=== PATIENT | male | born 1975 | race Caucasian/White ===

== ENCOUNTER → 2017-08-13 16:07 | Outpatient (CLI) | payer BC, SELFPAY ==
--- NOTE | 2017-08-13 16:20 | EKG12_ITS ---
Test Reason : PRE OP Blood Pressure : / mmHG Vent. Rate : 072 BPM Atrial Rate : 072 BPM P-R Int : 140 ms QRS Dur : 076 ms QT Int : 372 ms P-R-T Axes : 051 021 022 degrees QTc Int : 407 ms Normal sinus rhythm with sinus arrhythmia Normal ECG Confirmed by FELIPE MEZA, RADHA ([id number]), content editor CHOLO DAVID ([id number]) on 08/15/2017 2:08:07 PM Referred By: Poncho Rod Confirmed By:RADHA WANG MD
--- NOTE | 2017-08-13 16:21 | RAD_ITS ---
STUDY: X-RAY CHEST REASON FOR EXAM: Male, 41 years old. Preoperative exam TECHNIQUE: Frontal and lateral views of the chest COMPARISON: None. FINDINGS: The lungs are clear. There are no pleural effusions. There is no pneumothorax. The heart is normal in size. The visualized osseous structures are within normal limits. RAD/Chest PA and Lateral IMPRESSION: Clear lungs Electronically Signed: Yamil Mendez, at 17:17 EDT Tel , Service support ,
[2017-08-13 17:11] LABS: Hematocrit 43.7 % (40-54); Hemoglobin 15.2 g/dl (13.0-16.5); Mean Corp Hgb Conc 34.8 g/gl (32-36); Mean Corpuscular Hgb 30.3 pg (27.0-32.0); Mean Corpuscular Volume 87.2 fL (80-94); Mean Platelet Vol. 10.6 fl (6.2-12.0); Platelet Count 270 K/mm3 (150-450); RBC Distribution Width CV 13.5 % (11.6-14.6); RBC Distribution Width SD 43.2 fl (35.1-43.9); Red Blood Count 5.01 M/mm3 (4.6-6.2); White Blood Count 7.5 K/mm3 (4.4-11.0)
[2017-08-13 17:12] LABS: Scan Indicated on CBC? Y/N NO
[2017-08-13 17:38] LABS: Anion Gap 7 (5-15); BUN 19 mg/dL (7-18); BUN/Creat Ratio 14.3 RATIO (10-20); Calcium,Total 8.7 mg/dL (8.5-10.1); Chloride 109 mmol/L (98-107); Creatinine, Serum 1.33 mg/dL (0.70-1.30); EST Glomerular Filtration Rate 63 mL/min (>60); Est Glom Filt Rate - Afr Amer 76 mL/min (>60); Glucose 80 mg/dL (74-106); Potassium 3.9 mmol/L (3.5-5.1); Sodium Level 144 mmol/L (136-145)
== END ==
PROVIDERS: Visit Provider Orthopaedic Surgery
DX: Z01.818 Encounter for other preprocedural examination (principal); Z01.810 Encounter for preprocedural cardiovascular examination; F17.200 Nicotine dependence, unspecified, uncomplicated
CPT/HCPCS: 36415; 71046; 80048; 85027; 93005

== ENCOUNTER 2018-12-14 15:25 | Emergency (ER) | payer BC, SELFPAY ==
[2018-12-14 15:26] VITALS: BP 152/96; PULSE 89; RESP 16; TEMP 37; O2SAT 98; BMI 35.8
--- NOTE | 2018-12-14 15:54 | ED.DCSUM_ITS ---
- ER Visit Summary Date of Service: 12/14/18 Chief Complaint: [Rash] History of Present Illness: The patient is a 43 M [present to the emergency department with a rash that he has had for about 2-1/2 weeks. Patient states that he was pulling bushes out from around his house and afterwards noted the rash. Patient believes is poison oak. Patient has been using calamine lotion but continues to have weeping and drainage from the wounds. He denies any fevers. Denies any new soaps or detergents otherwise. The rash seems to only involve his hands and wrists.] Physical Examination: [HEENT-PERRLA, EOMI. Cranial nerves II through XII grossly intact. TMs clear. Mucous membranes moist. No adenopathy. Cardiovascular-regular rate and rhythm without murmur or ectopy Lungs-clear to auscultation, chest wall stable without crepitus or subcu emphysema Abdomen-normoactive bowel sounds, soft, nontender, no rebound or rigidity, no peritoneal signs. Skin exam-patient does have weeping and excoriated lesions involving the dorsum of the hands and wrists. Patient does have some inflammatory changes around the lesions. Rash is typical of a Rhous dermatitis Extremities-intact ?4, normal range of motion, normal pulses, atraumatic] Test Results: [None indicated] Emergency Department Course and Treatment: [Patient was given prednisone 40 mg p.o.] Treatment Plan: [Patient will be given a prescription for prednisone. Patient will be given referral to power tool repairer for follow-up.] Disposition: [Discharged home stable condition] Impression: [Rhous dermatitis] This note was generated with [employer] dictation software. It may contain incorrect words, spelling, and punctuation that were not noted in review of the chart prior to signing ED Disposition - Plan for ED Patient: Referrals: Care Physician,No Primary [Primary Care Provider] -
[2018-12-14] MEDS: predniSONE 20 MG Tablet 40 MG PO (15:56)
--- NOTE | 2018-12-14 15:57 | ED.DEP ---
ED Disposition - Plan for ED Patient: Instructions: Poison [place] Dermatitis Prescriptions: Prednisone [Deltasone] 20 mg PO BID #14 tab Prescription Printed Referrals: Care Physician,No Primary [Primary Care Provider] - Yadiel Barrow MD [STAFF PHYSICIAN] - 5-7 Days
== END 2018-12-14 16:03 | disposition home or self-care (01) ==
LOC: ED 15:58
PROVIDERS: Emergency Provider Emergency Medicine
DX: L23.7 Allergic contact dermatitis due to plants, except food (principal)
CPT/HCPCS: 99283

== ENCOUNTER 2020-02-22 17:16 | Emergency (ER) | payer BC, SELFPAY ==
[2020-02-22 17:17] VITALS: BP 148/105; PULSE 74; RESP 15; TEMP 35.8; O2SAT 100; BMI 38.5
--- NOTE | 2020-02-22 17:38 | CM.ED ---
Social Work Patient with no PCP. Patient provided with list of PCP's in area. Patient with insurance and voices no concerns on returning to home/community if cleared by medical team in ED. Ishaan CRANDALL, JOSE
--- NOTE | 2020-02-22 17:39 | ED.VIS.GEN ---
History of Present Illness Chief Complaint: Complaint Informant: Patient Onset: Days Context: Gradual Onset Current Severity: Mild Maximum Severity: Mild Narrative: Patient presents with dysuria and penile discharge. Symptoms been ongoing for couple of days. He denies any known partners with infection. He states he is monogamous with his . He denies history of UTIs or STDs. He denies any lesions or sores. Past Medical History - Allergies and Home Meds Allergies/Adverse Reactions: Allergies No Known Allergies Allergy (Verified 02/22/20 17:16) Primary Care Physician: Care Physician,No Primary [Primary Care Provider] - Past Medical History: None Lives: Spouse/ Significant Other Smoking Status: Current some day smoker Review of Systems General: Denies: Chills, Fever Eyes: Denies: Visual changes - bilaterally ENT: Denies: Bilateral ear pain Cardiovascular: Denies: Chest pain Respiratory: Denies: Dyspnea, Cough Gastrointestinal: Denies: Abdominal pain, Vomiting Genitourinary: Reports: Dysuria Musculoskeletal: Denies: Extremity Pain Skin: Denies: Rash Neurological: Denies: Headache Hematologic: Denies: Easy bruising, Easy bleeding Allergy: Denies: Uticaria Physical Exam Vital Signs/Narrative: Vital Signs Temp Pulse Resp BP Pulse Ox 02/22/20 17:17 96.5 F L 74 15 148/105 H 100 Inital Vital Signs reviewed: Yes General: Well nourished, Well developed Head: Normocephalic ENT: Moist mucous membranes Neck: Supple Cardiovascular: Regular rate, Regular rhythm Respiratory: No distress, CTA bilaterally Abdomen: Soft, Nontender : - - Patient declined examination stating that there were no lesions to evaluate. Back: Negative for: CVA tenderness Extremities: Nontender Skin: Normal color Neurological: Alert, Oriented x3 Psychological: Normal affect Diagnostic/Tx/Re-eval Laboratory Results 02/22/20 17:50 Urine Color Yellow Urine Clarity Sl. Cloudy Urine pH 7.0 Ur Specific [place] 1.010 Urine Protein Negative Urine Glucose (UA) Normal Urine Ketones Negative Urine Occult Blood Negative Urine Nitrite Negative Urine Bilirubin Negative Urine Urobilinogen Normal Ur Leukocyte Esterase 500 H Urine RBC 0-5 SEEN Urine WBC 25-50 SEEN Ur Squamous Epith Cells 0 SEEN Urine Bacteria 1+ Urine Mucus 0 SEEN - Medical Decision Making Urinalysis does reveal evidence of infection. He will be treated with a 3-day course of Cipro. Gonorrhea and Chlamydia tests were sent but would not be available for couple of hours. I advised him we will call him with those results and get him antibiotic coverage for that if needed. ED Disposition - Plan for ED Patient: Disposition: Home or Assisted Living Diagnosis: Cystitis Instructions: ED CYSTITIS Male Adult Prescriptions: Ciprofloxacin [Cipro] 500 mg PO BID #6 tab Transmission Status: Pending to [facility]30 Additional Instructions: PCP referral pamphlet provided.
[2020-02-22 18:02] LABS: Mucous, Urine 0 SEEN /hpf (<or=2+); Squamous Epithelial Cells - UA 0 SEEN /hpf (0-5)
[2020-02-22 18:04] LABS: Color, Urine Yellow (Yellow); Glucose, Dipstick Normal (Normal); Ketone-Dipstick Negative (Negative); Leukocyte Esterase-Dipstick 500 /ul (Negative); Nitrite-Dipstick Negative (Negative); Occult Blood-Urine Negative /ul (Negative); Protein-Dipstick Negative (Negative); Urine Bilirubin Dipstick Negative (Negative); Urine Clarity Sl. Cloudy (Clear); Urine Urobilinogen Normal (Normal)
[2020-02-22 18:11] LABS: Bacteria 1+ /hpf (None Seen); Red Blood Cells-Urine 0-5 SEEN /hpf (0-5); White Blood Cells 25-50 SEEN /hpf (0-5)
[2020-02-22] MEDS: Ciprofloxacin 500 MG Tablet PO (18:58)
[2020-02-22 19:41] LABS: Chlamydia Trachomatis by PCR Negative (Negative); Neisserai gonorrhoeae by PCR Negative (Negative); Probe Check PASS; Sample Adequacy Control PASS; Specimen Processing Control PASS
== END 2020-02-22 19:19 | disposition home or self-care (01) ==
PROVIDERS: Emergency Provider Emergency Medicine
DX: N30.90 Cystitis, unspecified without hematuria (principal); F17.200 Nicotine dependence, unspecified, uncomplicated
CPT/HCPCS: 81001; 87086; 87491; 87591; 99282

== ENCOUNTER → 2020-05-01 15:49 | Outpatient (CLI) | payer BC, SELFPAY ==
[2020-05-04 07:07] LABS: Chlamydia By Nucleic Acid AMP Negative (Negative)
[2020-05-04 13:49] LABS: Gonococcus By Nucleic Acid AMP Negative (Negative)
== END ==
LOC: MFPLAB 15:50 → LABSPEC 15:52
PROVIDERS: PCP Family Medicine; Referring Provider Family Medicine; Visit Provider Family Medicine
DX: R36.9 Urethral discharge, unspecified (principal)
CPT/HCPCS: 87086; 87491; 87591

== ENCOUNTER → 2020-05-18 15:41 | Outpatient (CLI) | payer BC, SELFPAY ==
[2020-05-18 18:20] LABS: ALB/GLOB Ratio 1.1 RATIO (0.9-2.4); AST(SGOT) 53 U/L (15-37); Alanine Aminotransfer ALT/SGPT 61 U/L (16-61); Albumin, Serum 4.2 g/dL (3.2-5.0); Alkaline Phosphatase 98 U/L (45-117); Anion Gap 7 (5-15); BUN 16 mg/dL (7-18); BUN/Creat Ratio 13.1 RATIO (10-20); Calcium,Total 9.4 mg/dL (8.5-10.1); Chloride 107 mmol/L (98-107); Cholesterol 202 mg/dL (200); Creatinine, Serum 1.22 mg/dL (0.70-1.30); EST Glomerular Filtration Rate 69 mL/min (>60); Est Glom Filt Rate - Afr Amer 83 mL/min (>60); Globulin 3.8 g/dL (2.2-4.2); Glucose 89 mg/dL (74-106); High Density Lipoprotein 42 mg/dL; Potassium 3.8 mmol/L (3.5-5.1); Sodium Level 142 mmol/L (136-145); Triglycerides 107 mg/dL; Very Low Density Lipoprotein 21 mg/dL (5-40)
== END ==
LOC: MFPLAB 15:42
PROVIDERS: PCP Family Medicine; Referring Provider Family Medicine; Visit Provider Family Medicine
DX: E66.9 Obesity, unspecified (principal)
CPT/HCPCS: 36415; 80053; 80061

== ENCOUNTER → 2020-05-23 14:24 | Outpatient (CLI) | payer BC, SELFPAY | LOC: LABSPEC 14:25 | PROVIDERS: PCP Family Medicine; Referring Provider Family Medicine; Visit Provider Family Medicine | DX: R36.9 Urethral discharge, unspecified (principal) | CPT/HCPCS: 87086; 87088 ==

== ENCOUNTER → 2020-10-31 16:24 | Outpatient (CLI) | payer BC, SELFPAY ==
[2020-10-31 16:26] LABS: Bacteria 0 SEEN /hpf (None Seen); Mucous, Urine 0 SEEN /hpf (<or=2+); Red Blood Cells-Urine 0 SEEN /hpf (0-5)
[2020-10-31 18:16] LABS: Color, Urine Yellow (Yellow); Glucose, Dipstick Normal (Normal); Ketone-Dipstick Negative (Negative); Nitrite-Dipstick Negative (Negative); Occult Blood-Urine Negative /ul (Negative); Protein-Dipstick Negative (Negative); Specific Gravity, Urine 1.015 (1.002-1.030); Urine Bilirubin Dipstick Negative (Negative); Urine Urobilinogen Normal (Normal)
[2020-10-31 18:29] LABS: Leukocyte Esterase-Dipstick 25 /ul (Negative); Urine Clarity Sl. Cloudy (Clear)
[2020-10-31 18:34] LABS: Squamous Epithelial Cells - UA 0-5 SEEN /hpf (0-5); White Blood Cells 5-10 SEEN /hpf (0-5)
[2020-10-31 19:17] LABS: Probe Check PASS; Sample Adequacy Control PASS; Specimen Processing Control PASS
[2020-10-31 19:49] LABS: Chlamydia Trachomatis by PCR Negative (Negative); Neisserai gonorrhoeae by PCR Negative (Negative); Probe Check PASS; Sample Adequacy Control PASS; Specimen Processing Control PASS; Trichomonas Vag DNA by PCR POSITIVE (Negative)
== END ==
LOC: LABSPEC 16:25
PROVIDERS: PCP Family Medicine; Visit Provider Family Medicine
DX: R36.9 Urethral discharge, unspecified (principal)
CPT/HCPCS: 81001; 87086; 87491; 87591; 87661

== ENCOUNTER → 2020-11-01 11:31 | Outpatient (CLI) | payer BC, SELFPAY ==
--- NOTE | 2020-11-01 11:33 | US_ITS ---
EXAM DESCRIPTION: Bilateral testicular ultrasound CLINICAL HISTORY: 45 years Male, SWELLING and pain lt test COMPARISON: None. FINDINGS: A bilateral testicular ultrasound was performed showing a homogeneous internal pattern of the testicles with the following measurements: Right testicle: 4.5 cm. x 3.2cm. x 2.3 cm. Left testicle: 4.4 cm. x 3.4cm. x 2.1 cm. There is good color Doppler flow noted in both testicles, with no evidence of an internal testicular mass. The epididymis appears to be normal bilaterally. Small bilateral hydroceles are identified. A varicocele is noted lateral to the left testicle. US/Testicular with Arterial Flow IMPRESSION: 1. A varicocele is noted lateral to the left testicle. 2. Small bilateral hydroceles are identified. Electronically Signed: Pramod Wills DO at 7:45 EDT Tel , Service support ,
== END ==
LOC: US 11:32
PROVIDERS: PCP Family Medicine; Referring Provider Family Medicine; Visit Provider Family Medicine
DX: N50.89 Other specified disorders of the male genital organs (principal)
CPT/HCPCS: 76870; 93976

== ENCOUNTER 2021-09-22 04:05 | Emergency (ER) | payer BC, SELFPAY ==
[2021-09-22 04:05] VITALS: BP 149/112; PULSE 68; RESP 15; TEMP 36.4; O2SAT 100; BMI 38.6
[2021-09-22 04:07] VITALS: BP 149/112; PULSE 71; RESP 15; TEMP 36.4; O2SAT 100
--- NOTE | 2021-09-22 04:07 | CT_ITS ---
STUDY: CT ABDOMEN AND PELVIS WITHOUT CONTRAST REASON FOR EXAM: Male, 46 years old. flank pain RADIATION DOSAGE (If Supplied By Facility): CTDIvol = ( 21.39 ) mGy, DLP = ( 1197.08 ) mGycm TECHNIQUE: Transaxial images were obtained from the dome of the diaphragm to the symphysis pubis without oral contrast, and without intravenous contrast. Sagittal and coronal images were reconstructed. Individualized dose optimization techniques were used for this CT. COMPARISON: None. FINDINGS: The visualized lung bases are unremarkable. The visualized portions of the heart are within normal limits. Normal liver. Normal gallbladder and extrahepatic biliary system. Normal spleen. Normal pancreas. Normal bilateral adrenal glands. Mild right-sided perinephric fat stranding and edema. There is a stone in the urinary bladder measuring 3 mm. Likely recently passed through the right kidney and ureter. Mild right hydronephrosis.UPJ measuring 3 mm. No significant hydronephrosis. Additional stone in the left UVJ measuring 3 mm Normal visualized stomach. Normal small intestine. Normal colon. The appendix is visualized and appears normal. Normal abdominal aorta. Normal inferior vena cava. Normal retroperitoneum. Normal urinary bladder. Normal visualized prostate gland. Normal abdominal wall. Normal osseous structures. CT/Abdomen/Pelvis without Cont IMPRESSION: Small stone in the urinary bladder, likely from the right kidney with mild right hydronephrosis and mild right hydroureter. Left kidney demonstrates punctate stone at the left UPJ without significant obstructive hydronephrosis. Remainder is within normal limits. Electronically Signed: Percy Sargent DO at 5:13 EDT ,
--- NOTE | 2021-09-22 04:14 | EDS_ITS ---
HPI History of Present Illness Chief Complaint: Flank Pain Narrative Narrative: 46-year-old male presenting with right flank pain. He states this started about 12:30 AM. Its been ongoing for a few hours. Patient describes it as acute in nature. Denies dysuria or hematuria. Patient has distant history of kidney stones states it feels similar. He has radiation from the flank to his right groin. No fever or chills. Does express that he is nauseous. PFSH PFSH Home Medications hydrocodone-acetaminophen 5-325mg 5mg-325mg 1 tab PO Q6H PRN pain 3 days #10 tabs 09/22/21 [Rx Last Taken Unknown] ondansetron 4 mg disintegrating tablet 4 mg PO Q8H PRN nausea and vomiting #10 tabs 09/22/21 [Rx Last Taken Unknown] Allergy/AdvReac Type Severity Reaction Status Date / Time No Known Allergies Allergy Verified 02/22/20 17:16 Social History Smoking Status: Current every day smoker tobacco type: cigarettes ROS ROS ED Constitutional Constitutional ED: Denies chills or fever(s) Eyes Eyes: Denies change in vision ENT ENT ED: Denies rhinorrhea or sore throat Cardiovascular Cardiovascular: Denies chest pain or palpitations Respiratory/Chest Respiratory/Chest: Denies cough or dyspnea Gastrointestinal Gastrointestinal: Denies abdominal pain Genitourinary Genitourinary ED: Denies dysuria or hematuria Musculoskeletal Musculoskeletal: Reports back pain Integumentary Denies abscess Neurologic Neurologic: Denies headache(s) or paresthesias EXAM Physical Exam Const Vital Signs: 09/22/21 04:05 09/22/21 04:07 09/22/21 04:08 Temperature 97.5 F L 97.5 F L Temperature Source Oral Oral Pulse Rate 68 71 Respiratory Rate 15 15 Respiratory Effort Normal Non-Labored Respiratory Pattern Normal Blood Pressure 149/112 H 149/112 H Blood Pressure Mean 124 124 Pulse Ox 100 100 Oxygen Delivery Method Room Air Room Air Positive well nourished General Appearance ED: NAD HEENT Reports moist mucous membranes Eyes PERRL and EOMs intact bilaterally Resp normal respiratory effort Cardio regular rate and regular rhythm GI normal to inspection, nondistended, normoactive bowel sounds Back/Spine General Back: CVA tenderness right Neuro oriented x3 and CN's II-XII intact bilaterally Sensorium / Orientation: alert Psych mental status grossly normal Skin no rashes or lesions noted MDM MDM MDM Narrative Medical decision making narrative: We did attempt to establish an IV however the patient is a difficult stick and wishes to be treated otherwise. We did obtain blood work and his CBC and BMP are unremarkable. He was given a IM shot of Toradol 50 mg, and [place] 07/31/2024, and ODT Zofran 4 mg. Patient improving on reevaluation. CT of the abdomen pelvis without contrast shows right-sided hydro nephrosis and mild right hydroureter. There is a small punctate stone in the bladder which is likely from the right side. There is a small punctate stone in the left UPJ without significant obstruction. He is not having pain here. Urinalysis showed occult blood. No infection present. Patient given follow-up with urology. He was counseled that he had a small left-sided UPJ stone. Return precautions discussed. He was given [place] and Zofran for home. Impression: 1. Right flank pain 2. Renal colic 3. Hematuria 4. Left UPJ stone 5. Bladder calculi Lab Data Labs: Laboratory Results - last 24 hr 09/22/21 09/22/21 09/22/21 04:22 04:22 05:38 WBC 7.7 RBC 5.06 Hgb 15.3 Hct 47.0 MCV 92.9 MCH 30.2 MCHC 32.6 RDW Std Deviation 46.5 H RDW Coeff of [place]beth 13.8 Plt Count 282 MPV 10.4 Immature Gran % (Auto) 0.600 Neut % (Auto) 61.5 Lymph % (Auto) 26.2 [place] % (Auto) 9.5 Eos % (Auto) 1.4 Baso % (Auto) 0.8 Absolute Neuts (auto) 4.8 Absolute Lymphs (auto) 2.02 Nucleated RBC % 0 Sodium 140 Potassium 4.1 Chloride 113 H Carbon Dioxide 20.0 L Anion Gap 7 BUN 17 Creatinine 1.24 Estim Creat Clear Calc 72.78 Est GFR (MDRD) Af Amer 81 Est GFR (MDRD) Non-Af 67 BUN/Creatinine Ratio 13.7 Glucose 176 H Calcium 9.2 Urine Color Yellow Urine Clarity Clear Urine pH 6.0 Ur Specific [place] 1.025 Urine Protein 15 H Urine Glucose (UA) 50 H Urine Ketones 5 H Urine Occult Blood 250 H Urine Nitrite Negative Urine Bilirubin Negative Urine Urobilinogen Normal Ur Leukocyte Esterase 25 H Urine RBC 10-25 SEEN Urine WBC 0-5 SEEN Ur Squamous Epith Cells 0-5 SEEN Urine Bacteria 1+ Urine Mucus 0 SEEN Radiography Diagnostic Testing: Clinical Impression(s) from Imaging Studies Abdomen/Pelvis CT 09/22/21 04:07 IMPRESSION: Small stone in the urinary bladder, likely from the right kidney with mild right hydronephrosis and mild right hydroureter. Left kidney demonstrates punctate stone at the left UPJ without significant obstructive hydronephrosis. Remainder is within normal limits. Electronically Signed: Percy Sargent DO at 5:13 EDT , Discharge Plan Triage Chief Complaint: Flank Pain ED Provider: Fortino Hampton Dx/Rx/DC Orders Instructions: ED Kidney Stone w/ Colic Prescriptions: New hydrocodone-acetaminophen 5-325 mg tablet 1 tab PO Q6H PRN (Reason: pain) 3 Days Qty: 10 0RF ondansetron 4 mg tablet,disintegrating 4 mg PO Q8H PRN (Reason: nausea and vomiting) Qty: 10 0RF Primary Care Provider: Care Physician,No Primary Referrals: Chi Donald MD [STAFF PHYSICIAN] - 3-5 Days Pramod Moura MD [STAFF PHYSICIAN] - Disposition Disposition: Home, Self Care
[2021-09-22 04:39] LABS: Absolute Lymphocyte Count 2.02 X10^3/uL (0.83-4.51); Absolute Neutrophil Count 4.8 X10^3/uL (2.0-7.7); Basophil# 0.06 X10^3/uL; Basophil% 0.8 % (0-1); Eosinophil# 0.11 X10^3/uL; Eosinophils% 1.4 % (0-5); Hemoglobin 15.3 g/dL (13.0-16.5); Lymphocyte # 2.02 X10^3/ul (0.83-4.51); Lymphocyte % 26.2 % (19-41); Mean Corp Hgb Conc 32.6 g/dL (32-36); Mean Corpuscular Hgb 30.2 pg (27.0-32.0); Mean Corpuscular Volume 92.9 fL (80-94); Mean Platelet Vol. 10.4 fl (6.2-12.0); Monocyte# 0.73 X10^3/uL; Monocyte% 9.5 % (0-10); NRBC Flagged by Analyzer 0 % (0-5); Neutrophil # 4.75 X10^3/uL (2.7-7.7); Neutrophil % 61.5 % (47-70); Platelet Count 282 K/mm3 (150-450); RBC Distribution Width CV 13.8 % (11.6-14.6); RBC Distribution Width SD 46.5 fl (35.1-43.9); Red Blood Count 5.06 M/mm3 (4.6-6.2); White Blood Count 7.7 K/mm3 (4.4-11.0)
[2021-09-22] MEDS: oxyCODONE 5 MG Tablet PO (04:41)
[2021-09-22] MEDS: Ondansetron ODT 4 MG Tablet PO (04:41)
[2021-09-22] MEDS: Ketorolac 15 MG/ML Vial IM (04:43)
[2021-09-22 05:02] LABS: Anion Gap 7 (5-15); BUN 17 mg/dL (7-18); BUN/Creat Ratio 13.7 RATIO (10-20); Calcium,Total 9.2 mg/dL (8.5-10.1); Chloride 113 mmol/L (98-107); Creatinine, Serum 1.24 mg/dL (0.70-1.30); EST Glomerular Filtration Rate 67 mL/min (>60); Est Glom Filt Rate - Afr Amer 81 mL/min (>60); Estimated Creatinine Clearance 72.78 ml/min; Glucose 176 mg/dL (74-106); Potassium 4.1 mmol/L (3.5-5.1); Sodium Level 140 mmol/L (136-145)
[2021-09-22 05:43] LABS: Mucous, Urine 0 SEEN /hpf (<or=2+)
[2021-09-22 05:44] LABS: Color, Urine Yellow (Yellow); Glucose, Dipstick 50 mg/dl (Normal); Ketone-Dipstick 5 mg/dl (Negative); Leukocyte Esterase-Dipstick 25 /ul (Negative); Nitrite-Dipstick Negative (Negative); Occult Blood-Urine 250 /ul (Negative); Protein-Dipstick 15 mg/dl (Negative); Specific Gravity, Urine 1.025 (1.002-1.030); Urine Bilirubin Dipstick Negative (Negative); Urine Clarity Clear (Clear); Urine Urobilinogen Normal (Normal)
[2021-09-22 05:56] LABS: Red Blood Cells-Urine 10-25 SEEN /hpf (0-5); Squamous Epithelial Cells - UA 0-5 SEEN /hpf (0-5); White Blood Cells 0-5 SEEN /hpf (0-5)
[2021-09-22 05:57] LABS: Bacteria 1+ /hpf (None Seen)
[2021-09-22 06:16] VITALS: BP 132/75; PULSE 68; RESP 15; O2SAT 97
== END 2021-09-22 06:17 | disposition home or self-care (01) ==
PROVIDERS: Emergency Provider Student in an Organized Health Care Education/Training Program; Visit Provider Student in an Organized Health Care Education/Training Program
DX: N20.2 Calculus of kidney with calculus of ureter (principal); N13.4 Hydroureter; F17.210 Nicotine dependence, cigarettes, uncomplicated; R11.0 Nausea
CPT/HCPCS: 74176; 80048; 81001; 85025; 96372; 96374; 96375; 99283; J7030; A4216

== ENCOUNTER 2023-05-13 17:14 | Emergency (ER) | payer BC, SELFPAY ==
[2023-05-13 17:15] VITALS: BP 138/93; PULSE 108; RESP 18; TEMP 36.4; O2SAT 99; BMI 37.4
--- NOTE | 2023-05-13 20:25 | EX.ED.VIS.UR ---
HPI HPI - URI History of Present Illness Chief Complaint: Cough Narrative Narrative: 47-year-old male with cough, rhinorrhea, body aches x 1 day. Patient states he has mild malaise. No chest pain or shortness of breath. No fever. Patient does not think he has any sick contacts. He is a smoker with no history of COPD. Denies abdominal pain, nausea, vomiting, diarrhea. ROS ROS ED Constitutional Constitutional ED: Reports chills; Denies sweats Eyes Eyes: Denies blurry vision or change in vision ENT ENT ED: Reports rhinorrhea and sore throat; Denies ear pain Cardiovascular Cardiovascular: Denies chest pain, palpitations or racing heartbeat Respiratory/Chest Respiratory/Chest: Reports cough; Denies dyspnea or sputum Gastrointestinal Gastrointestinal: Denies abdominal pain, constipation, diarrhea, nausea or vomiting Genitourinary Genitourinary ED: Denies dysuria, hematuria or urinary frequency Musculoskeletal Musculoskeletal: Reports myalgias; Denies arthralgias or neck pain Integumentary Denies abscess, Abrasions or rash Neurologic Neurologic: Reports headache(s); Denies paresthesias or weakness Psychiatric Psychiatric: Denies anxiety, depression, suicidal ideation or suicidal thoughts Endocrine Endocrinology: Denies polydipsia or polyuria PFSH PFSH Home Medications hydrocodone-acetaminophen 5-325mg 5mg-325mg 1 tab PO Q6H PRN pain 3 days #10 tabs 09/22/21 [Rx Last Taken Unknown] ondansetron 4 mg disintegrating tablet 4 mg PO Q8H PRN nausea and vomiting #10 tabs 09/22/21 [Rx Last Taken Unknown] Allergy/AdvReac Type Severity Reaction Status Date / Time No Known Allergies Allergy Verified 05/13/23 17:17 Social History Smoking Status: Current every day smoker tobacco type: cigarettes EXAM Physical Exam Const Vital Signs: 05/13/23 17:15 05/13/23 19:24 Temperature 97.6 F L Temperature Source Temporal Pulse Rate 108 H Respiratory Rate 18 Respiratory Effort Normal Non-Labored Respiratory Depth Normal Respiratory Pattern Normal Blood Pressure 138/93 H Blood Pressure Mean 108 Pulse Ox 99 Oxygen Delivery Method Room Air Room Air Positive well nourished General Appearance ED: NAD; Negative for pallor HEENT Reports moist mucous membranes normocephalic and atraumatic Eyes PERRL and EOMs intact bilaterally Resp normal respiratory effort and clear to auscultation bilaterally Auscultation: Negative for rales, rhonchi or wheezes Cardio Rate: regular rate Rhythm: regular rhythm GI non-tender Extremity normal to inspection Neuro oriented x3 and CN's II-XII intact bilaterally Sensorium / Orientation: alert Motor Exam: strength 5/5 throughout Psych mental status grossly normal Skin General Skin Exam: Negative for jaundice or pallor MDM MDM MDM Narrative Medical decision making narrative: Patient presenting with viral symptoms. He is well-appearing with normal vital signs. Patient tested for COVID and influenza as well as RSV. Influenza positive. Patient has mild symptoms and no believe needs any workup. Counseled any Tylenol and ibuprofen at home. I offered I counseled drink plenty of fluids. Return precautions were discussed. Impression: 1. Influenza A. Discharge Plan Triage Chief Complaint: Cough ED Provider: Fortino Hampton Dx/Rx/DC Orders Instructions: ED Influenza (Adult) Prescriptions: No Action hydrocodone-acetaminophen 5-325 mg tablet 1 tab PO Q6H PRN (Reason: pain) 3 Days Qty: 10 0RF ondansetron 4 mg tablet,disintegrating 4 mg PO Q8H PRN (Reason: nausea and vomiting) Qty: 10 0RF Primary Care Provider: Care Physician,No Primary Referrals: [facility] [Provider Group] - 3-5 Days Care Physician,No Primary [Primary Care Provider] - Disposition Disposition: Home, Self Care
[2023-05-13 20:31] VITALS: BP 153/99; PULSE 118; RESP 20; TEMP 37.8; O2SAT 95
== END 2023-05-13 20:46 | disposition home or self-care (01) ==
PROVIDERS: Emergency Provider Student in an Organized Health Care Education/Training Program; Visit Provider Student in an Organized Health Care Education/Training Program
DX: J10.1 Influenza due to other identified influenza virus with other respiratory manifestations (principal); F17.210 Nicotine dependence, cigarettes, uncomplicated
CPT/HCPCS: 87631; 99282